=== PATIENT | female | born 1990 | race African-American/Black ===

== ENCOUNTER 2016-11-28 01:49 | Emergency (ER) | payer BC ==
[~2016-11-28] VITALS: Ht 152.4 cm; Wt 72.6 kg
--- NOTE | ~2016-11-28 | CR169 ---
[facility]. [facility] A Service of [facility] & [facility] RADIOLOGY TEXT RESULTS PATIENT: ALCIDES MALCOLM LOCATION: SED : 86 UNIT #: [id number] AGE: [address]: Moisés Colón MD SEX: F ORDER DR: [id number] [place] [id number] E MR#: [id number] Acc #: [id number] NAME: ALCIDES MALCOLM : 1990 SEX: F STUDY DATE/TIME: 11/28/2016 2:12 UNIT: SED ROOM: STUDY DESCRIPTION: CR Knee 2 Views Lt Attending Physician: Moisés Colón M.D. Ordering Physician: Moisés Colón M.D. MEDICAL IMAGING REPORT This report is preliminary unless electronic signature is present. EXAM Left knee, 11/28/2016. HISTORY 26-year-old female in the ED complaining of new onset left knee pain today. No reported acute injury. TECHNIQUE Two-view left knee series. FINDINGS The examination is negative. No fracture, arthropathy or other osseous abnormality is demonstrated. No visible joint effusion. IMPRESSION Negative left knee. Dictated by... Juwan Brand M.D. THIS IS AN ELECTRONICALLY VERIFIED REPORT Juwan Brand M.D. at 11/28/2016 9:58 PM LEEANNA/boubacar TD: 11/28/2016 10:35 JOB #: [id number] MEDICAL IMAGING REPORT Page 1 of 1
[2016-11-28] MEDS ORDERED: NO MEDICATIONS (01:59)
== END 2016-11-28 02:30 | disposition home or self-care (01) ==
LOC: SED 01:49
DX: M76.52 Patellar tendinitis, left knee (principal); F17.200 Nicotine dependence, unspecified, uncomplicated
CPT/HCPCS: 29530; 73560; 99283